=== PATIENT | female | born 1995 | race Caucasian/White ===

== ENCOUNTER 2024-10-18 09:36 | Emergency (ER) | payer MEDICAID ==
[~2024-10-18] VITALS: Ht 170.2 cm; Wt 82.0 kg
[2024-10-18 09:42] VITALS: BP 124/80; PULSE 120; RESP 16; TEMP 36.6; O2SAT 100; O2SAT 97
[2024-10-18] MEDS: LORAZEPAM 2MG/ML INJ IM ONE (11:08)
[2024-10-18] MEDS: OLANZAPINE 5MG TABLET ODT PO ONE (11:11)
[2024-10-18 11:49] VITALS: TEMP 98.4
[2024-10-18] MEDS: ACETAMINOPHEN 325MG TABLET PO ONE (11:49)
[2024-10-18] MEDS ORDERED: LORA-250 MT (12:06)
[2024-10-18] MEDS ORDERED: ALBU90AE INH (12:06)
== END 2024-10-18 12:13 | disposition home or self-care (01) ==
LOC: ER 09:36
DX: F41.9 Anxiety disorder, unspecified (principal); J45.909 Unspecified asthma, uncomplicated; F31.9 Bipolar disorder, unspecified; Z98.890 Other specified postprocedural states
CPT/HCPCS: 99283; 96372; J2060

== ENCOUNTER 2024-11-27 13:32 | Emergency (ER) | payer MEDICAID, OTHER ==
[~2024-11-27] VITALS: Ht 170.2 cm; Wt 82.0 kg
[~2024-11-27 13:32] MED LIST: ALBU90AE INH; ARIP15TA2 PO; CYCL10TA21 PO; GABA-290 PO; LORA-250 MT
[2024-11-27 13:37] VITALS: O2SAT 99
[2024-11-27] MEDS ORDERED: LORAZEPAM 2MG/ML INJ IM STA (13:55)
[2024-11-27] MEDS: LORAZEPAM 2MG/ML UD SYRINGE IM NR (14:31)
[2024-11-27 15:33] LABS: BASOPHILS % 0.7 % (0.0-2.0); DIFFERENTIAL COMMENT 0; EOSINOPHILS % 0.5 % (0.0-5.0); HEMATOCRIT. 37.8 % (36.0-48.0); HEMOGLOBIN. 12.4 g/dL (12.0-16.0); LYMPHOCYTES % 15.9 % (20.0-50.0); MEAN CORPUSCULAR HEMOGLOBIN 25.8 pg (28.0-32.0); MEAN CORPUSCULAR HGB CONC 32.8 g/dL (31.0-37.0); MEAN CORPUSCULAR VOLUME 78.6 fL (81.0-99.0); MEAN PLATELET VOLUME 6.6 fl (7.4-10.4); MONOCYTES % 3.4 % (2.0-8.0); NEUTROPHILS % 79.5 % (40.0-76.0); PLATELET 462 x1000/uL (130-400); RED BLOOD CELL COUNT 4.81 mill/uL (4.2-5.4); WHITE BLOOD COUNT 10.5 x1000/uL (4.5-11.0)
[2024-11-27 15:42] LABS: CHLORIDE 109 mEq/L (98-107); POTASSIUM 4.2 mEq/L (3.5-5.1); SODIUM 139 mEq/L (136-145)
[2024-11-27 15:43] LABS: CARBON DIOXIDE 23 mEq/L (21-32)
[2024-11-27 15:44] LABS: CALCIUM 10.1 mg/dL (8.7-10.4)
[2024-11-27 15:44] LABS: COLOR URINE YELLOW (YELLOW); GLUCOSE URINE NEGATIVE (NEGATIVE); KETONES URINE NEGATIVE (NEGATIVE); LEUKOCYTE ESTERASE URINE NEGATIVE (NEGATIVE); NITRITE URINE NEGATIVE (NEGATIVE); OCCULT BLOOD URINE NEGATIVE (NEGATIVE); PROTEIN URINE NEGATIVE (NEGATIVE); SPECIFIC GRAVITY URINE 1.026 (1.005-1.030); UROBILINOGEN URINE 0.2 E.U./dL (0.2-1.0)
[2024-11-27 15:48] LABS: CREATININE 0.7 mg/dL (0.6-1.0); GLUCOSE 103 mg/dL (70-105); UREA NITROGEN BLOOD 13 mg/dL (9-23)
[2024-11-27 15:49] LABS: ETHANOL BLOOD < 10 mg/dL (<10)
[2024-11-27 15:50] LABS: ACETAMINOPHEN < 2 ug/mL (10-30)
[2024-11-27 15:51] LABS: HCG SCREEN NEGATIVE
[2024-11-27 16:02] LABS: TROPONIN I HIGH SENSITIVITY < 4 ng/L (3.0-34)
[2024-11-27 16:22] LABS: *AMPHETAMINES SCREEN URINE NEGATIVE (NEGATIVE); *BARBITURATES SCREEN URINE NEGATIVE (NEGATIVE); *BENZODIAZEPINES SCREEN URINE NEGATIVE (NEGATIVE); *COCAINE SCREEN URINE NEGATIVE (NEGATIVE); CANNABINOID URINE SCREEN NEGATIVE (NEGATIVE); ECSTASY MDMA SCREEN URINE NEGATIVE (NEGATIVE); METHADONE URINE SCREEN NEGATIVE (NEGATIVE); OPIATES URINE SCREEN NEGATIVE (NEGATIVE); PHENCYCLIDINE URINE SCREEN NEGATIVE (NEGATIVE)
[2024-11-27 16:29] LABS: CLARITY URINE HAZY (CLEAR); RBC URINE NONE SEEN /hpf (0-2); SQUAMOUS EPITHELIAL CELL URINE FEW /lpf (RARE/1+); WBC URINE 0-2 /hpf (0-2)
[2024-11-27 16:30] LABS: BACTERIA URINE TRACE
[2024-11-27 19:36] LABS: TROPONIN I HIGH SENSITIVITY < 4 ng/L (3.0-34)
[2024-11-27] MEDS: LORAZEPAM 1MG TABLET PO ONE (20:05)
[2024-11-27] MEDS: OLANZAPINE 5MG TABLET ODT PO ONE (20:05)
[2024-11-27 22:00] VITALS: BP 110/84; PULSE 82; RESP 16; TEMP 37; O2SAT 99
== END 2024-11-27 23:13 | disposition home or self-care (01) ==
LOC: ER 13:41
DX: F41.9 Anxiety disorder, unspecified (principal); R44.0 Auditory hallucinations; J45.909 Unspecified asthma, uncomplicated; F31.9 Bipolar disorder, unspecified; F15.10 Other stimulant abuse, uncomplicated; Z79.899 Other long term (current) drug therapy; Z20.822 Contact with and (suspected) exposure to COVID-19
CPT/HCPCS: 80305; 80048; 81003; 81025; 80307; 80329; 80320; 84703; 85025; 84484; 36415; 71045; 96372; 99285; 87426; J2060; Z7610; G0480

== ENCOUNTER 2025-01-26 12:14 | Emergency (ER) | payer MEDICAID, OTHER ==
[~2025-01-26] VITALS: Ht 170.2 cm; Wt 100.0 kg
[2025-01-26 12:16] VITALS: BP 113/80; TEMP 36.7; O2SAT 100
[2025-01-26 12:19] VITALS: PULSE 112; RESP 20; O2SAT 99
[2025-01-26] MEDS: LORAZEPAM 1MG TABLET PO ONE (13:09)
[2025-01-26] MEDS ORDERED: TRAZ-251 MT (13:37)
== END 2025-01-26 13:51 | disposition home or self-care (01) ==
LOC: ER 12:14
DX: F31.9 Bipolar disorder, unspecified (principal); J45.909 Unspecified asthma, uncomplicated; Z79.899 Other long term (current) drug therapy; Z98.890 Other specified postprocedural states
CPT/HCPCS: 99283

== ENCOUNTER 2025-02-08 05:51 | Emergency (ER) | payer MEDICAID ==
[~2025-02-08] VITALS: Ht 167.6 cm; Wt 98.0 kg
[~2025-02-08 05:51] MED LIST changes: +TRAZ-251 MT
[2025-02-08 06:26] VITALS: O2SAT 98
[2025-02-08 07:09] VITALS: BP 120/82; PULSE 84; RESP 18; TEMP 36.7; O2SAT 98
== END 2025-02-08 07:10 | disposition home or self-care (01) ==
LOC: ER 05:51
DX: F41.9 Anxiety disorder, unspecified (principal); R44.0 Auditory hallucinations; F31.9 Bipolar disorder, unspecified
CPT/HCPCS: 99282

== ENCOUNTER 2025-04-27 13:31 | Emergency (ER) | payer MEDICAID ==
[~2025-04-27] VITALS: Ht 170.2 cm; Wt 100.0 kg
[2025-04-27 13:39] VITALS: O2SAT 99
[2025-04-27 14:15] VITALS: BP 115/80; PULSE 102; RESP 18; TEMP 37.1; O2SAT 100
[2025-04-27] MEDS: LORAZEPAM 2MG/ML UD SYRINGE IM SCH (14:25)
== END 2025-04-27 16:01 | disposition home or self-care (01) ==
LOC: ER 13:31
DX: F43.0 Acute stress reaction (principal); F15.10 Other stimulant abuse, uncomplicated; F41.9 Anxiety disorder, unspecified; F31.9 Bipolar disorder, unspecified; Z79.899 Other long term (current) drug therapy; Z88.0 Allergy status to penicillin
CPT/HCPCS: 99283; 96372; J2060

== ENCOUNTER 2025-05-04 08:30 | Emergency (ER) | payer MEDICAID ==
[~2025-05-04] VITALS: Ht 172.7 cm; Wt 80.0 kg
[2025-05-04 08:39] VITALS: O2SAT 99
[2025-05-04 10:45] LABS: CLARITY URINE CLOUDY (CLEAR); COLOR URINE YELLOW (YELLOW); GLUCOSE URINE NEGATIVE (NEGATIVE); KETONES URINE 1+ (NEGATIVE); LEUKOCYTE ESTERASE URINE 1+ (NEGATIVE); NITRITE URINE NEGATIVE (NEGATIVE); OCCULT BLOOD URINE NEGATIVE (NEGATIVE); PH URINE 7.5 (4.5-8.0); PROTEIN URINE TRACE (NEGATIVE); SPECIFIC GRAVITY URINE 1.019 (1.005-1.030); UROBILINOGEN URINE 1.0 E.U./dL (0.2-1.0)
[2025-05-04 10:56] VITALS: BP 104/68; PULSE 97; RESP 16; TEMP 36.6; O2SAT 100
[2025-05-04 11:08] LABS: BACTERIA URINE 4+; RBC URINE 0-2 /hpf (0-2); SQUAMOUS EPITHELIAL CELL URINE 3+ /lpf (RARE/1+); YEAST URINE NONE SEEN
== END 2025-05-04 10:59 | disposition home or self-care (01) ==
LOC: ER 08:30
DX: F41.9 Anxiety disorder, unspecified (principal); F31.9 Bipolar disorder, unspecified; Z79.899 Other long term (current) drug therapy; Z88.0 Allergy status to penicillin
CPT/HCPCS: 81003; 87077; 87186; 99283

== ENCOUNTER 2025-06-01 20:14 | Emergency (ER) | payer MEDICAID ==
[~2025-06-01] VITALS: Ht 177.8 cm; Wt 100.0 kg
[2025-06-01 21:09] VITALS: O2SAT 99
[2025-06-01 23:57] LABS: BASOPHILS % 1.0 % (0.0-2.0); EOSINOPHILS % 5.7 % (0.0-5.0); HEMATOCRIT. 36.5 % (36.0-48.0); HEMOGLOBIN. 12.1 g/dL (12.0-16.0); LYMPHOCYTES % 27.2 % (20.0-50.0); MEAN PLATELET VOLUME 6.7 fl (7.4-10.4); MONOCYTES % 6.2 % (2.0-8.0); NEUTROPHILS % 59.9 % (40.0-76.0); PLATELET 504 x1000/uL (130-400); RED BLOOD CELL COUNT 4.69 mill/uL (4.2-5.4); RED CELL DISTRIBUTION WIDTH 14.9 % (11.6-14.6)
[2025-06-02 00:07] LABS: *AMPHETAMINES SCREEN URINE PRESUMPTIVE POSITIVE (NEGATIVE); *BARBITURATES SCREEN URINE NEGATIVE (NEGATIVE); *BENZODIAZEPINES SCREEN URINE NEGATIVE (NEGATIVE); *COCAINE SCREEN URINE NEGATIVE (NEGATIVE); CANNABINOID URINE SCREEN PRESUMPTIVE POSITIVE (NEGATIVE); ECSTASY MDMA SCREEN URINE CONF.TEST INDICATED (NEGATIVE); METHADONE URINE SCREEN NEGATIVE (NEGATIVE); OPIATES URINE SCREEN NEGATIVE (NEGATIVE); PHENCYCLIDINE URINE SCREEN NEGATIVE (NEGATIVE)
[2025-06-02 00:26] LABS: CREATININE 0.8 mg/dL (0.6-1.0); UREA NITROGEN BLOOD 9 mg/dL (9-23)
[2025-06-02 00:27] LABS: CLARITY URINE CLOUDY (CLEAR); COLOR URINE YELLOW (YELLOW); GLUCOSE URINE NEGATIVE (NEGATIVE); KETONES URINE NEGATIVE (NEGATIVE); PH URINE 7.5 (4.5-8.0); PROTEIN URINE NEGATIVE (NEGATIVE); SPECIFIC GRAVITY URINE 1.023 (1.005-1.030)
[2025-06-02 00:28] LABS: LEUKOCYTE ESTERASE URINE 1+ (NEGATIVE); NITRITE URINE POSITIVE (NEGATIVE); OCCULT BLOOD URINE NEGATIVE (NEGATIVE); UROBILINOGEN URINE 1.0 E.U./dL (0.2-1.0)
[2025-06-02 00:57] LABS: BACTERIA URINE 3+; RBC URINE NONE SEEN /hpf (0-2); SQUAMOUS EPITHELIAL CELL URINE 1+ /lpf (RARE/1+)
[2025-06-02 03:09] LABS: HCG SCREEN NEGATIVE
[2025-06-02 03:11] LABS: ASPARTATE AMINOTRANSFERASE 20 IU/L (<34); BILIRUBIN DIRECT < 0.1 mg/dL (<=3.0); BILIRUBIN TOTAL 0.3 mg/dL (0.1-1.0); PROTEIN TOTAL 6.5 g/dL (6.0-8.3)
[2025-06-02] MEDS: HYDROXYZINE 25MG TABLET PO PRN (11:11)
[2025-06-02] MEDS: OLANZAPINE 5MG TABLET PO SCH (11:12)
[2025-06-02 16:13] VITALS: BP 134/80; PULSE 82; RESP 16; TEMP 36.7; O2SAT 100
== END 2025-06-02 16:25 ==
LOC: ER 20:14
DX: F41.9 Anxiety disorder, unspecified (principal); F41.0 Panic disorder [episodic paroxysmal anxiety]; J45.909 Unspecified asthma, uncomplicated; Z79.899 Other long term (current) drug therapy; Z88.0 Allergy status to penicillin; Z20.822 Contact with and (suspected) exposure to COVID-19
CPT/HCPCS: 36415; 80048; 80076; 80305; 80307; 80320; 80329; 81003; 84703; 85025; 87077; 87186; 87426; 93005; 99285; G0480

== ENCOUNTER 2025-06-13 09:51 | Emergency (ER) | payer MEDICAID ==
[~2025-06-13] VITALS: Ht 170.2 cm; Wt 103.2 kg
[2025-06-13 09:54] VITALS: O2SAT 99
[2025-06-13 10:35] VITALS: BP 104/68; PULSE 81; RESP 16; TEMP 37; O2SAT 99
== END 2025-06-13 13:51 | disposition left against medical advice (07) ==
LOC: ER 09:51
DX: F41.9 Anxiety disorder, unspecified (principal); F31.9 Bipolar disorder, unspecified; J45.909 Unspecified asthma, uncomplicated; Z79.899 Other long term (current) drug therapy; Z88.0 Allergy status to penicillin
CPT/HCPCS: 93005; 99283

== ENCOUNTER 2025-07-12 15:56 | Emergency (ER) | payer MEDICAID ==
[~2025-07-12] VITALS: Ht 170.2 cm; Wt 105.0 kg
[2025-07-12 16:06] VITALS: O2SAT 98
[2025-07-12 17:13] LABS: BASOPHILS % 0.8 % (0.0-2.0); EOSINOPHILS % 2.2 % (0.0-5.0); HEMATOCRIT. 36.2 % (36.0-48.0); HEMOGLOBIN. 11.8 g/dL (12.0-16.0); LYMPHOCYTES % 23.5 % (20.0-50.0); MEAN PLATELET VOLUME 7.0 fl (7.4-10.4); MONOCYTES % 7.4 % (2.0-8.0); NEUTROPHILS % 66.1 % (40.0-76.0); PLATELET 487 x1000/uL (130-400); RED BLOOD CELL COUNT 4.57 mill/uL (4.2-5.4); RED CELL DISTRIBUTION WIDTH 15.2 % (11.6-14.6)
[2025-07-12] MEDS ORDERED: DIPHENHYDRAMINE 50MG/ML VIAL IM ONE (17:15)
[2025-07-12] MEDS ORDERED: HALOPERIDOL LACTATE 5MG/ML VIAL IM ONE (17:15)
[2025-07-12 17:22] LABS: CREATININE 0.8 mg/dL (0.6-1.0)
[2025-07-12 17:23] LABS: ETHANOL BLOOD < 10 mg/dL (<10); UREA NITROGEN BLOOD 6 mg/dL (9-23)
[2025-07-12 17:33] LABS: HCG SCREEN NEGATIVE
[2025-07-12] MEDS ORDERED: LORAZEPAM 2MG/ML UD SYRINGE IM NR (17:45)
[2025-07-12 20:28] LABS: CLARITY URINE TURBID (CLEAR); COLOR URINE YELLOW (YELLOW); GLUCOSE URINE NEGATIVE (NEGATIVE); KETONES URINE TRACE (NEGATIVE); LEUKOCYTE ESTERASE URINE 1+ (NEGATIVE); NITRITE URINE POSITIVE (NEGATIVE); OCCULT BLOOD URINE 3+ (NEGATIVE); PH URINE 6.5 (4.5-8.0); PROTEIN URINE 2+ (NEGATIVE); SPECIFIC GRAVITY URINE 1.023 (1.005-1.030); UROBILINOGEN URINE 1.0 E.U./dL (0.2-1.0)
[2025-07-12 20:52] LABS: BACTERIA URINE 4+; SQUAMOUS EPITHELIAL CELL URINE 2+ /lpf (RARE/1+)
[2025-07-12 20:53] LABS: *AMPHETAMINES SCREEN URINE PRESUMPTIVE POSITIVE (NEGATIVE); *BENZODIAZEPINES SCREEN URINE NEGATIVE (NEGATIVE); RBC URINE 15-25 /hpf (0-2)
[2025-07-12 20:54] LABS: *BARBITURATES SCREEN URINE NEGATIVE (NEGATIVE); *COCAINE SCREEN URINE PRESUMPTIVE POSITIVE (NEGATIVE); CANNABINOID URINE SCREEN NEGATIVE (NEGATIVE); ECSTASY MDMA SCREEN URINE CONF.TEST INDICATED (NEGATIVE); METHADONE URINE SCREEN NEGATIVE (NEGATIVE); OPIATES URINE SCREEN NEGATIVE (NEGATIVE); PHENCYCLIDINE URINE SCREEN NEGATIVE (NEGATIVE)
[2025-07-13 03:00] VITALS: BP 124/76; PULSE 69; RESP 16; TEMP 36.8; O2SAT 99
[2025-07-13] MEDS: NITROFURANTOIN 100MG M/M CAPSULE PO SCH (09:25)
== END 2025-07-13 12:50 | disposition left against medical advice (07) ==
LOC: ER 15:56
DX: R44.0 Auditory hallucinations (principal); F31.9 Bipolar disorder, unspecified; N39.0 Urinary tract infection, site not specified; F14.10 Cocaine abuse, uncomplicated; F15.10 Other stimulant abuse, uncomplicated; J45.909 Unspecified asthma, uncomplicated; Z88.0 Allergy status to penicillin; Z20.822 Contact with and (suspected) exposure to COVID-19; Z79.899 Other long term (current) drug therapy
CPT/HCPCS: 36415; 80048; 80305; 80307; 80320; 80329; 81003; 82550; 84703; 85025; 87426; 99284; J2060; G0480